=== PATIENT | male | born 1950 | race Hispanic/Latino ===

== ENCOUNTER 2020-10-01 21:28 | Emergency (ER) | payer OTHER ==
[~2020-10-01 21:28] MED LIST: Iopamidol 370 76% 100 ML VIAL ONE
[2020-10-01] MEDS ORDERED: Ketorolac Tromethamine 30 MG/ML VIAL ONE (21:44)
[2020-10-01 21:50] LABS: #Basophils 0.1 thou/uL (0.0-0.2); #Eosinphils 0.2 thou/uL (0.0-0.7); #Monocytes 0.7 thou/uL (0.11-0.59); #Neutrophils 6.4 thou/uL (1.40-6.50); %Basophils 0.8 % (0.0-1.0); %Eosinophils 2.2 % (0.0-10.0); %Lymphocytes 21.7 % (21.0-51.0); %Monocytes 7.1 % (0.0-10.0); %Neutrophils 68.2 % (42.0-75.0); Hemoglobin 16.2 g/dL (14.0-18.0); Mean Corpuscular HGB CONC 32.1 g/dL (32.0-36.0); Mean Corpuscular Hemoglobin 28.5 pg (27.0-31.0); Mean Corpuscular Volume 88.8 fL (78.0-98.0); Mean Platelet Volume 10.1 fL (7.4-10.4); Platelet Count 160 thou/uL (130-400); RBC Distribution Width 13.1 % (11.5-14.5); Red Blood Cell (RBC) Count 5.67 mill/uL (4.70-6.10); White Blood Cell (WBC) Count 9.4 thou/uL (4.8-10.8)
--- NOTE | 2020-10-01 21:58 | RAD ---
Portable frontal chest radiograph: 10/01/2020 COMPARISON: 09/30/2020 HISTORY: Chest pain FINDINGS: Stable heart and mediastinal contours. Stable mild interstitial prominence with no pneumoth orax or pleural fluid. No focal consolidation or alveolar edema. IMPRESSION: Stable frontal chest radiograph. No acute findings.
[2020-10-01 22:05] LABS: ALT (SGPT) 12 U/L (8-55); AST (SGOT) 15 U/L (5-34); Albumin 4.4 g/dL (3.4-4.8); Alkaline Phosphatase 65 U/L (40-110); Anion Gap 16 mmol/L (10-20); BUN (Urea Nitrogen) 25 mg/dL (8.4-25.7); Bilirubin, Total 0.7 mg/dL (0.2-1.2); Calc. Creatinine Clearance 0 mL/min (70-130); Calcium 9.3 mg/dL (7.8-10.44); Carbon Dioxide 23 mmol/L (23-31); Chloride 103 mmol/L (98-107); Globulin 3.6 g/dL (2.4-3.5); Glucose 111 mg/dL (80-115); Potassium 4.1 mmol/L (3.5-5.1); Sodium 138 mmol/L (136-145)
--- NOTE | 2020-10-01 23:05 | CT ---
CT of the chest: 10/01/2020 COMPARISON: None HISTORY: Injury TECHNIQUE: Axial CT imaging at 5 mm intervals through the chest with IV contrast. Coronal and sagitta l reformatted imaging obtained. FINDINGS: No axillary, hilar, or mediastinal lymphadenopathy. Imaged upper abdomen demonstrates findings suspicious for a prominent infrarenal abdominal aortic ane urysm measuring at least 4.3 cm, only partially imaged on this exam. No pleural, pericardial, or mediastinal fluid is seen. There is scattered atherosclerotic calcificati on of the aortic arch and the coronary arterial vasculature. There is a subpleural cyst within the medial aspect of the right lung apex measuring 2.9 cm. There is no pneumothorax seen on either side. There is mild increased linear density within the posterior aspect of the lingula suggesting scar and /or volume loss. There is a tiny nodule within the posterior aspect of the right lower lobe measuring 3-4 mm on axial image 48. No endobronchial lesion is seen on this exam. Review of the osseous structures demonstrates no evidence for acute fracture or dislocation within th e imaged spine. No evidence for a displaced rib fracture is seen on either side. IMPRESSION: Infrarenal abdominal aortic aneurysm, only partially imaged on this examination. This sara ears to measure at least 4.[address] examination of the abdomen pelvis advised for full assessment. Atherosclerotic disease. CODE T
[2020-10-01] MEDS ORDERED: Sodium Chloride 0.9% 1,000 ML ONE (23:19)
--- NOTE | 2020-10-01 23:58 | CT ---
CT of the abdomen and pelvis: 10/01/2020 HISTORY: Evaluate abdominal aortic aneurysm noted on recent chest CT TECHNIQUE: Axial CT imaging at 5 mm intervals from lung bases through pubic symphysis with IV contras t. Coronal and sagittal reformatted imaging obtained. FINDINGS: The visualized lung bases demonstrate no acute findings. No free intraperitoneal air or flu id. There is a small sliding-type hiatal hernia present. The liver, gallbladder, and pancreas are unremarkable. Nonspecific splenomegaly noted, the spleen annel suring 14 cm in AP dimension. The kidneys and adrenal glands demonstrate no acute findings. Limited assessment of the bowel demonstrates no evidence for obstruction or inflammatory change. There is an infrarenal abdominal aortic aneurysm with anterior lateral mural hypodense plaque. This i nfrarenal abdominal aortic aneurysm measures 5.0 x 4.8 cm in greatest AP/transverse dimension. Review of the osseous structures demonstrates no worrisome lytic or blastic bone lesion. Lower lumbar spine facet hypertrophic changes are noted. IMPRESSION: Infrarenal abdominal aortic aneurysm measuring up to 5 cm. Given size, follow-up vascular surgery consultation advised.
== END 2020-10-02 02:14 | disposition short-term general hospital (02) ==
LOC: NAV ERS 21:28
DX: S20.211A Contusion of right front wall of thorax, initial encounter (principal); I71.4 Abdominal aortic aneurysm, without rupture; I10 Essential (primary) hypertension; K21.9 Gastro-esophageal reflux disease without esophagitis; E78.5 Hyperlipidemia, unspecified; E11.9 Type 2 diabetes mellitus without complications; Z79.899 Other long term (current) drug therapy; Y04.2XXA Assault by strike against or bumped into by another person, initial encounter
CPT/HCPCS: 71045; 71260; 74177; 93005; 94760; 96374; J1885; J7050; Q9967